=== PATIENT | female | born 1995 | race Caucasian/White ===

== ENCOUNTER → 2018-04-10 | Emergency (ER) | payer OTHER ==
[~2018-04-10] VITALS: Ht 160 cm; Wt 65.8 kg
[~2018-04-10] MED LIST: ALBUTEROL2.5 MG/3 M IH; CLARINEX-D 121 EACH PO; OSEL75CA PO; TRAM1TAB98 PO; ZYNCOF 20-400120 ML PO
== END | disposition home or self-care (01) ==
LOC: ER 18:56
DX: J09.X2 Influenza due to identified novel influenza A virus with other respiratory manifestations (principal); B34.9 Viral infection, unspecified

== ENCOUNTER 2022-03-22 01:31 | Emergency (ER) | payer OTHER ==
[~2022-03-22] VITALS: Ht 160 cm; Wt 87.1 kg
[2022-03-22] MEDS ORDERED: DOLOGEN CAPLET1 EACH PO (02:55)
[2022-03-22] MEDS ORDERED: NORFLEX100MG PO (02:55)
== END 2022-03-22 03:05 | disposition home or self-care (01) ==
LOC: ER 01:31
DX: S13.4XXA Sprain of ligaments of cervical spine, initial encounter (principal); V49.9XXA Car occupant (driver) (passenger) injured in unspecified traffic accident, initial encounter; Y93.9 Activity, unspecified; Y92.413 State road as the place of occurrence of the external cause; Y99.9 Unspecified external cause status; Z88.6 Allergy status to analgesic agent; Z88.0 Allergy status to penicillin

== ENCOUNTER 2022-05-26 04:38 | Emergency (ER) | payer OTHER ==
[~2022-05-26] VITALS: Ht 160 cm; Wt 87.1 kg
[~2022-05-26 04:38] MED LIST changes: +DOLOGEN CAPLET1 EACH PO; +NORFLEX100MG PO
== END 2022-05-26 05:27 | disposition home or self-care (01) ==
LOC: ER 04:38
DX: S91.351A Open bite, right foot, initial encounter (principal); W55.01XA Bitten by cat, initial encounter; Y93.9 Activity, unspecified; Y92.018 Other place in single-family (private) house as the place of occurrence of the external cause; Y99.9 Unspecified external cause status; Z88.6 Allergy status to analgesic agent; Z88.0 Allergy status to penicillin